=== PATIENT | female | born 1970 | race Two or more races ===

== ENCOUNTER → 2020-11-22 | Outpatient (CLI) | payer OTHER ==
[~2020-11-22] MED LIST: CYCL10 PO; HYDACE5; HYDACE5 PO; IBUP600 PO; NAPR550 PO; Norco 5-325 Ta1 EACH PO; Prozac20 MG; RANI150 PO; TOPI25C
[2020-11-23 14:12] LABS: HPV 16 Negative (Negative); HPV 18 Negative (Negative); HPV OTHER HR TYPES Negative (Negative)
[2020-11-24 02:07] LABS: CHLAMYDIA TRACHOMATIS, NAA Negative (Negative)
== END | disposition home or self-care (01) ==
LOC: LAB 14:30 → LAB SHORT 14:30
PROVIDERS: Family Medicine
DX: Z01.419 Encounter for gynecological examination (general) (routine) without abnormal findings (principal)
CPT/HCPCS: 87491; 87591; 87624; 87661; G0123

== ENCOUNTER 2024-04-14 08:12 | Day surgery (SDC) | payer OTHER ==
[~2024-04-14] VITALS: Ht 160 cm; Wt 108.5 kg
[~2024-04-14 08:12] MED LIST changes: +Lactated Ringer's 1,000 ML IV SCH; +METF500 PO; +NS 500 ML IV SCH; +PANT40 PO
[2024-04-14 08:51] VITALS: BP 155/88
--- NOTE | 2024-04-14 09:02 | NUR ---
History, Chart, Medications and Allergies reviewed before start of procedure. Patient confirms NPO status and agrees with scheduled surgery. Lungs clear T/O to Auscultation. Pre-Op teaching done. Pt verbalizes understanding. Patient States Post-Procedure ride home has been arranged.
[2024-04-14] MEDS ORDERED: Lidocaine HCl 4% 5 ML SDA ONE (09:25)
[2024-04-14] MEDS ORDERED: propofoL 20 ML IV ONE (09:25)
[2024-04-14] MEDS ORDERED: Midazolam HCl 1MG / ML 2ML Vial ONE (09:41)
--- NOTE | 2024-04-14 09:46 | NUR ---
04/14/24 0946 Emanuel Slaughter History, Chart, Medications and Allergies reviewed before start of procedure. LIDOCAINE TO BACK OF THROAT, SEE DR STEVENS'S NOTES. Bite Block Placed BEFORE START OF PROCEDURE. GLASSES GIVEN TO FAMILY MEMBER AT BEDSIDE.
[2024-04-14 10:00] VITALS: BP 145/85
--- NOTE | 2024-04-14 10:19 | NUR ---
Discharge instructions reviewed with patient. Patient verbalizes understanding. Copy given to patient to take home. Patient States Post-Procedure ride home has been arranged. Discharged via wheelchair to private car for ride home.
== END 2024-04-14 10:19 | disposition home or self-care (01) ==
LOC: ORSCMMR 08:12 → ORD 09:00 → ORSCMMR 09:00
PROVIDERS: Internal Medicine Gastroenterology
PROC: 0DB48ZX Excision of Esophagogastric Junction, Via Natural or Artificial Opening Endoscopic, Diagnostic (ICD-10-PCS; principal; 2024-04-14 09:00)
PROC: 0DB58ZX Excision of Esophagus, Via Natural or Artificial Opening Endoscopic, Diagnostic (ICD-10-PCS; principal; 2024-04-14 09:00)
PROC: 0DB68ZX Excision of Stomach, Via Natural or Artificial Opening Endoscopic, Diagnostic (ICD-10-PCS; principal; 2024-04-14 09:00)
PROC: 0DB98ZX Excision of Duodenum, Via Natural or Artificial Opening Endoscopic, Diagnostic (ICD-10-PCS; principal; 2024-04-14 09:00)
DX: R10.13 Epigastric pain (principal); K21.00 Gastro-esophageal reflux disease with esophagitis, without bleeding; K29.70 Gastritis, unspecified, without bleeding; E11.9 Type 2 diabetes mellitus without complications; G47.33 Obstructive sleep apnea (adult) (pediatric); E66.01 Morbid (severe) obesity due to excess calories; Z68.41 Body mass index [BMI] 40.0-44.9, adult; Z87.891 Personal history of nicotine dependence; Z79.84 Long term (current) use of oral hypoglycemic drugs; Z79.899 Other long term (current) drug therapy
CPT/HCPCS: 82947; 88305; 88342; J2003; J2250; J2704; J7040